=== PATIENT | male | born 1980 | race Caucasian/White ===

== ENCOUNTER 2017-03-27 17:35 | Emergency (ER) | payer SELFPAY ==
[~2017-03-27] VITALS: Ht 175.3 cm; Wt 88.6 kg
[2017-03-27 17:38] VITALS: BP 151/70
== END 2017-03-27 20:15 | disposition left against medical advice (07) ==
LOC: EMS 17:38
DX: R10.10 Upper abdominal pain, unspecified (principal); Z53.21 Procedure and treatment not carried out due to patient leaving prior to being seen by health care provider

== ENCOUNTER 2017-04-01 10:27 | Emergency (ER) | payer SELFPAY ==
[~2017-04-01] VITALS: Ht 175.3 cm; Wt 89.0 kg
[2017-04-01 10:29] VITALS: BP 137/87
== END 2017-04-01 11:18 | disposition left against medical advice (07) ==
LOC: EMS 10:28
DX: Z53.21 Procedure and treatment not carried out due to patient leaving prior to being seen by health care provider (principal)

== ENCOUNTER 2017-04-01 14:07 | Emergency (ER) | payer MEDICAID ==
[~2017-04-01] VITALS: Ht 175.3 cm; Wt 89.0 kg
[2017-04-01 17:30] VITALS: BP 139/78
== END 2017-04-01 18:15 | disposition home or self-care (01) ==
LOC: EMS 14:11
DX: Q79.59 Other congenital malformations of abdominal wall (principal); F17.210 Nicotine dependence, cigarettes, uncomplicated
CPT/HCPCS: 99281; 99406